=== PATIENT | male | born 1970 | race American Indian/Alaskan Native ===

== ENCOUNTER 2017-11-10 13:20 | Observation (INO) | payer BC, OTHER ==
[2017-11-10 13:47] LABS: BASO # 0.1 K/uL (0.0-0.2); EOS % 0.7 % (0.0-4.0); HEMOGLOBIN 15.9 g/dL (12.0-18.0); LYMPH # 1.4 K/uL (1.0-4.3); LYMPH % 20.4 % (20.0-40.0); MEAN CELL VOLUME 84.6 fL (80.0-94.0); MEAN CORPUSCULAR HEMOGLOBIN 28.8 pg (27.0-31.0); MEAN PLATELET VOLUME 9.9 fL (7.2-11.7); MONO # 0.6 K/uL (0.0-0.8); MONO % 8.1 % (0.0-10.0); NEUT # 4.8 K/uL (1.8-7.0); NEUT % 69.8 % (50.0-75.0); RBC 5.52 Mil/uL (4.40-5.90); RED CELL DISTRIBUTION WIDTH 16.2 % (11.5-14.5)
--- NOTE | 2017-11-10 13:51 | C.PDOC ---
History Of Present Illness 47 year old male with a past medical history of cerebral aneurysm without rupture who presents to the emergency department with an acute onset of dizziness when he woke up from his sleep around 2 am. States dizziness worsens when he moves his head and decreases when he is still. Patient is on an annual surveillance MRI with Dr. Sorenson (neurologist). Last MRI results were negative with no acute changes. Time Seen by Provider: 11/10/17 13:48 Chief Complaint (Nursing): Weakness/Neurological Deficit History Per: Patient History/Exam Limitations: no limitations Onset/Duration Of Symptoms: Hrs (since 2am) Current Symptoms Are (Timing): Still Present Past Medical History Reviewed: Historical Data, Nursing Documentation, Vital Signs Vital Signs: Last Vital Signs Temp 98.5 F 11/10/17 18:32 Pulse 65 11/10/17 18:32 Resp 16 11/10/17 18:32 BP 129/81 11/10/17 18:32 Pulse Ox 99 11/10/17 18:32 - Medical History PMH: Benign Prostatic Hyperplasia, HTN, TIA Other PMH: cerebral aneurysm without rupture - [facility] Procedures INCIS W REM OF FORIEGN BODY OR DEV FROM SKIN & SUBCUT TISSUE (11/28/14) OTH & OPEN REP OTH HERNIA OF ANTER ABD WALL W GRF OR PROSTH (12/23/13) Family History: States: Unknown Family Hx - Social History Hx Tobacco Use: Yes Hx Alcohol Use: No Hx Substance Use: No - Immunization History Hx Tetanus Toxoid Vaccination: No Hx Influenza Vaccination: No Hx Pneumococcal Vaccination: No Review Of Systems Except As Marked, All Systems Reviewed And Found Negative. (As per HPI, otherwise negative) Neurological: Positive for: Dizziness Physical Exam - Physical Exam Appears: Well, Non-toxic Skin: Normal Color, Warm, Dry Head: Atraumatic, Normacephalic Gingiva: Normal Appearing Throat: Normal, No Erythema, No Exudate Chest: No Deformity, No Tenderness Cardiovascular: Rhythm Regular, No Murmur Respiratory: Normal Breath Sounds, No Decreased Breath Sounds, No Accessory Muscle Use, No Wheezing Gastrointestinal/Abdominal: Normal Exam, Soft, No Tenderness Extremity: Normal ROM, No Pedal Edema Neurological/Psych: Oriented x3 Gait: Steady ED Course And Treatment - Laboratory Results Result Diagrams: 11/10/17 13:44 11/10/17 13:44 Lab Interpretation: Normal ECG: Interpreted By Me ECG Rhythm: Sinus Rhythm ECG Interpretation: Normal Rate From EC O2 Sat by Pulse Oximetry: 100 (RA) Pulse Ox Interpretation: Normal - Radiology CXR: Interpreted by Me, Viewed By Me, Read By Radiologist CXR Interpretation: Yes: No Acute Disease, Other (IMPRESSION: No active pulmonary disease.) - CT Scan/US CT - Head Other Rad Studies (CT/US): Read By Radiologist, Radiology Report Reviewed CT/US Interpretation: IMPRESSION: No evidence of acute intracranial hemorrhage intracranial collection territorial infarct or mass effect. Progress Note: Meclizine 50 mg PO. 1800: claims not sig improved. feed dinner , toradol 30 IV, Valium 5 PO Reevaluation Time: 17:52 Reassessment Condition: Improved - Physician Consult Information Outcome Of Conversation: 1800: d/w Dr. Aldo chavez to admit tele obs. Medical Decision Making Medical Decision Making: s/s of BPV but unimproved w Meclizine normal labs/head CT Trial valium/toradol inpt eval and plan for MRI in AM Time: 1434 --Chest x-ray IMPRESSION: No active pulmonary disease. Time: 1537 --Head CT IMPRESSION: No evidence of acute intracranial hemorrhage intracranial collection territorial infarct or mass effect. Disposition Doctor Will See Patient In The: Hospital Counseled Patient/Family Regarding: Studies Performed, Diagnosis - Disposition Disposition: HOSPITALIZED Disposition Time: 17:56 Condition: GOOD - Clinical Impression Clinical Impression: Vertigo - Scribe Statement Provider Attestation: Suzy Schultz All medical record entries made by the Scribe were at my direction and personally dictated by me. I have reviewed the chart and agree that the record accurately reflects my personal performance of the history, physical exam, medical decision making, and the department course for this patient. I have also personally directed, reviewed, and agree with the discharge instructions and disposition.
[2017-11-10 14:20] LABS: ALB/GLOB RATIO 1.2 (1.0-2.1); ALBUMIN 4.5 g/dL (3.5-5.0); ALT/SGPT 43 U/L (21-72); AST/SGOT 38 U/L (17-59); BLOOD UREA NITROGEN 18 mg/dL (9-20); GFR AFRICAN-AMERICAN > 60; GFR NON-AFRICAN AMERICAN > 60
--- NOTE | 2017-11-10 14:36 | RAD ---
PROCEDURE: CHEST RADIOGRAPH, 1 VIEW HISTORY: Shortness of breath COMPARISON: 12/23/2015. FINDINGS: LUNGS: The lungs are well inflated and clear. PLEURA: No pneumothorax or pleural fluid seen. CARDIOVASCULAR: Normal. OSSEOUS STRUCTURES: No significant abnormalities. VISUALIZED UPPER ABDOMEN: Normal. OTHER FINDINGS: None. IMPRESSION: No active pulmonary disease.
[2017-11-10 15:04] LABS: URINE BILIRUBIN NEGATIVE (NEGATIVE); URINE BLOOD NEGATIVE (NEGATIVE); URINE CLARITY Clear (Clear); URINE COLOR Straw (YELLOW); URINE GLUCOSE (UA) NORMAL (Normal); URINE LEUKOCYTE ESTERASE NEG Leu/uL (Negative); URINE NITRATE NEGATIVE (NEGATIVE); URINE PROTEIN NEGATIVE (NEGATIVE); URINE UROBILINOGEN NORMAL mg/dL (0.2-1.0)
--- NOTE | 2017-11-10 15:43 | CT ---
PROCEDURE: CT HEAD WITHOUT CONTRAST. HISTORY: vertigo, h/o CVA? COMPARISON: Comparison is made with 10/18/2016 TECHNIQUE: Axial computed tomography images were obtained through the head/brain without intravenous contrast. Radiation dose: Total exam DLP = 875.6 mGy-cm. This CT exam was performed using one or more of the following dose reduction techniques: Automated exposure control, adjustment of the mA and/or kV according to patient size, and/or use of iterative reconstruction technique. FINDINGS: HEMORRHAGE: No intracranial hemorrhage. BRAIN: No mass effect or edema. No atrophy or chronic microvascular ischemic changes. VENTRICLES: Unremarkable. No hydrocephalus. CALVARIUM: Unremarkable. PARANASAL SINUSES: Unremarkable as visualized. No significant inflammatory changes. MASTOID AIR CELLS: Unremarkable as visualized. No inflammatory changes. OTHER FINDINGS: None. IMPRESSION: No evidence of acute intracranial hemorrhage intracranial collection territorial infarct or mass effect.
[2017-11-10 17:08] LABS: BARBITURATES, UR NEGATIVE (NEGATIVE); BENZODIAZEPINES, UR NEGATIVE (NEGATIVE); OPIATES, UR NEGATIVE (NEGATIVE); PHENCYCLIDINE, UR NEGATIVE (NEGATIVE)
[2017-11-10] MEDS ORDERED: Aspirin 325 mg EC Tablets PO STA (17:59)
[2017-11-10] MEDS ORDERED: Aspirin 325 mg EC Tablets PO ONE (18:20)
[2017-11-10] MEDS ORDERED: oxyCODONE 10 mg Immediate Release Tab PO PRN (20:48)
--- NOTE | 2017-11-10 21:48 | CP.PCM.HP ---
History of Present Illness - History of Present Illness History of Present Illness: 47 year old male with a past medical history of cerebral aneurysm without rupture who presents to the emergency department with an acute onset of dizziness when he woke up from his sleep around 2 am. States dizziness worsens when he moves his head and decreases when he is still.. Last MRI results were negative with no acute changes. Present on Admission - Present on Admission Any Indicators Present on Admission: No Review of Systems - Constitutional Constitutional: absent: As Per HPI, Anorexia, Chills, Daytime Sleepiness, Excessive Sweating, Fatigue, Fever, Frequent Falls, Headache, Increased Appetite , Lethargy, Malaise, Night Sweats, Snoring, Sleep Apnea, Weight Gain, Weight Loss, Weakness, Other - EENT Eyes: absent: As Per HPI, Blind Spots, Blurred Vision, Change in Vision, Decreased Night Vision, Diplopia, Discharge, Dry Eye, Exophthalmos, Floaters, Irritation, Itchy Eyes, Loss of Peripheral Vision, Pain, Photophobia, Requires Corrective Lenses, Sees Flashes, Spots in Vision, Tunnel Vision, Other Visual Disturbances, Loss of Vision, Other - Cardiovascular Cardiovascular: absent: As Per HPI, Acrocyanosis, Chest Pain, Chest Pain at Rest , Chest Pain with Activity, Claudication, Diaphoresis, Dyspnea, Dyspnea on Exertion, Edema, Irregular Heart Rhythm, Pain Radiating to Arm/Neck/Jaw, Leg Edema, Leg Ulcers, Lightheadedness, Orthopnea, Palpitations, Paroxysmal Nocturnal Dyspnea, Pedal Edema, Radiating Pain, Rapid Heart Rate, Slow Heart Rate, Syncope, Other - Respiratory Respiratory: absent: As Per HPI, Cough, Dyspnea, Hemoptysis, Dyspnea on Exertion , Wheezing, Snoring, Stridor, Pain on Inspiration, Chest Congestion, Excessive Mucous Production, Change in Mucous Color, Pain with Coughing, Other - Gastrointestinal Gastrointestinal: absent: As Per HPI, Abdominal Pain, Belching, Bloating, Change in Bowel Habits, Change in Stool Character, Coffee Ground Emesis, Constipation, Cramping, Diarrhea, Dyspepsia, Dysphagia, Early Satiety, Excessive Flatus, Fecal Incontinence, Heartburn, Hematemesis, Hematochezia, Loose Stools, Melena, Nausea, Odynophagia, Temesmus, Vomiting, Other - Neurological Neurological: Disequilibrium, Dizziness, Numbness, Vertigo, Weakness. absent: Abnormal Movements, Confusion, Convulsions, Focal Weakness, Frequent Falls, Sensory Deficit - Psychiatric Psychiatric: absent: As Per HPI, Abnormal Sleep Pattern, Anhedonia, Anxiety, Auditory Hallucinations, Behavioral Changes, Change in Appetite, Change in Libido, Confusion, Depression, Difficulty Concentrating, Hallucinations, Homicidal Ideation, Hopelessness, Irritability, Memory Loss, Mood Swings, Panic Attacks, Paranoia, Suicidal Ideation, Visual Hallucinations, Tactile Hallucinations, Other - Endocrine Endocrine: absent: As Per HPI, Change in Body Appearance, Change in Libido, Cold Intolorance, Deepening of Voice, Excessive Sweating, Fatigue, Flushing, Heat Intolorance, Increase in Ring/Shoe/Hat Size, Palpitations, Polydipsia, Polyphagia, Polyuria, Other Past Patient History - Past Medical History & Family History Past Medical History?: Yes - Past Social History Smoking Status: Light Smoker < 10 Cigarettes Daily - CARDIAC Hx Hypertension: Yes - NEUROLOGICAL Hx Transient Ischemic Attacks (TIA): Yes - MUSCULOSKELETAL/RHEUMATOLOGICAL Hx Falls: No - PSYCHIATRIC Hx Substance Use: No - SURGICAL HISTORY Other/Comment: HERNIA REPAIR, LEFT HAND/FINGER AMPUTATION - ANESTHESIA Hx Anesthesia: Yes Hx Anesthesia Reactions: Yes Hx Malignant Hyperthermia: No Meds Allergies/Adverse Reactions: Allergies Allergy/AdvReac Type Severity Reaction Status Date / Time No Known Allergies Allergy Verified 11/10/17 13:35 Physical Exam - Head Exam Head Exam: ATRAUMATIC, NORMAL INSPECTION, NORMOCEPHALIC - Eye Exam Eye Exam: EOMI, Normal appearance, PERRL Pupil Exam: NORMAL ACCOMODATION, PERRL - ENT Exam ENT Exam: Mucous Membranes Moist, Normal Exam - Neck Exam Neck exam: Positive for: Normal Inspection - Respiratory Exam Respiratory Exam: Clear to Auscultation Bilateral, NORMAL BREATHING PATTERN - Cardiovascular Exam Cardiovascular Exam: REGULAR RHYTHM, +S1 - Rectal Exam Rectal Exam: Deferred - Extremities Exam Extremities exam: Positive for: normal inspection - Back Exam Back exam: NORMAL INSPECTION - Neurological Exam Neurological exam: Alert, CN II-XII Intact, Normal Gait, Oriented x3, Reflexes Normal - Psychiatric Exam Psychiatric exam: Normal Affect, Normal Mood - Skin Skin Exam: Dry, Intact, Normal Color, Warm Results - Vital Signs Recent Vital Signs: Last Vital Signs Temp 98.5 F 11/10/17 18:32 Pulse 67 11/10/17 20:30 Resp 16 11/10/17 18:32 BP 129/81 11/10/17 18:32 Pulse Ox 100 11/10/17 19:49 - Labs Result Diagrams: 11/10/17 13:44 11/10/17 13:44 Labs: Laboratory Results - last 24 hr 11/10/17 11/10/17 11/10/17 13:27 13:44 13:44 WBC 7.0 RBC 5.52 Hgb 15.9 D Hct 46.7 MCV 84.6 D MCH 28.8 MCHC 34.0 RDW 16.2 H Plt Count 227 MPV 9.9 Neut % (Auto) 69.8 Lymph % (Auto) 20.4 Quay % (Auto) 8.1 Eos % (Auto) 0.7 Baso % (Auto) 1.0 Neut # 4.8 Lymph # 1.4 Quay # 0.6 Eos # 0.0 Baso # 0.1 Sodium 130 L Potassium 4.0 Chloride 94 L Carbon Dioxide 28 Anion Gap 11 BUN 18 Creatinine 1.2 Est GFR ( Amer) > 60 Est GFR (Non-Af Amer) > 60 POC Glucose (mg/dL) 101 Random Glucose 111 H Calcium 9.0 Total Bilirubin 0.6 AST 38 ALT 43 Alkaline Phosphatase 59 Total Creatine Kinase Troponin I < 0.0120 NT-Pro-B Natriuret Pep 12.0 Total Protein 8.2 Albumin 4.5 Globulin 3.7 Albumin/Globulin Ratio 1.2 Urine Color Urine Clarity Urine pH Ur Specific Mclean Urine Protein Urine Glucose (UA) Urine Ketones Urine Blood Urine Nitrate Urine Bilirubin Urine Urobilinogen Ur Leukocyte Esterase Urine Opiates Screen Urine Methadone Screen Ur Barbiturates Screen Ur Phencyclidine Scrn Ur Amphetamines Screen U Benzodiazepines Scrn U Oth Cocaine Metabols U Cannabinoids Screen 11/10/17 11/10/17 11/10/17 14:57 16:42 21:31 WBC RBC Hgb Hct MCV MCH MCHC RDW Plt Count MPV Neut % (Auto) Lymph % (Auto) Quay % (Auto) Eos % (Auto) Baso % (Auto) Neut # Lymph # Quay # Eos # Baso # Sodium Potassium Chloride Carbon Dioxide Anion Gap BUN Creatinine Est GFR ( Amer) Est GFR (Non-Af Amer) POC Glucose (mg/dL) Random Glucose Calcium Total Bilirubin AST ALT Alkaline Phosphatase Total Creatine Kinase 511 H Troponin I NT-Pro-B Natriuret Pep Total Protein Albumin Globulin Albumin/Globulin Ratio Urine Color Straw Urine Clarity Clear Urine pH 8.0 Ur Specific Mclean 1.008 Urine Protein Negative Urine Glucose (UA) Normal Urine Ketones Negative Urine Blood Negative Urine Nitrate Negative Urine Bilirubin Negative Urine Urobilinogen Normal Ur Leukocyte Esterase Neg Urine Opiates Screen Negative Urine Methadone Screen Negative Ur Barbiturates Screen Negative Ur Phencyclidine Scrn Negative Ur Amphetamines Screen Negative U Benzodiazepines Scrn Negative U Oth Cocaine Metabols Negative U Cannabinoids Screen Negative Assessment & Plan (1) Vertigo Status: Acute Comment: MRI HEAD. NEURO EVAL (2) Benign prostate hyperplasia Status: Acute
[2017-11-10 21:58] LABS: CK-MB 1.74 ng/mL (0.0-3.38)
[2017-11-11 08:08] LABS: CK-MB 1.86 ng/mL (0.0-3.38)
[2017-11-11] MEDS ORDERED: oxyCODONE 10 mg Immediate Release Tab PO PRN (08:35)
[2017-11-11 13:56] LABS: CK-MB 1.92 ng/mL (0.0-3.38)
--- NOTE | 2017-11-11 14:14 | CP.PCM.PN ---
Subjective - Date & Time of Evaluation Date of Evaluation: 11/11/17 Time of Evaluation: 14:13 - Subjective Subjective: CHIEF COMPLAINTS TODAY : POSITIONAL VERTIGO ROS. HEENT : N. Resp : No cough, wheezing ,pleuritic CP ,or hemoptysis Cardio : No anginal CP, PND, orthopnea, palpitation GI : No abd.pain, n/v ,diarrhea or GI bleeding . 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 Musculoskel : No joint swelling , Derm : No rash Psych : Normal affect. Ext : No swelling ,calf pain PE. Pt. is alert awake in no distress. V.S As noted in the chart Head ,ear nose,throat and eyes : Normal. Neck : Supple with normal carotids. Lungs: Clear air entry. Heart : S1 & S2 normal with S4. No murmur. Abd : Soft non tender with normal bowel sounds. Neuro : Moves all ext. with no localized deficit. Ext : No edema with intact pulses.Non tender calves Derm : No rashes or decubitus ulcer. LABS/RADIOLOGY: AWAITING MRI ASSESSMENT/PLAN : NEURO EVAL Objective - Vital Signs/Intake and Output Vital Signs (last 24 hours): Temp Pulse Resp BP Pulse Ox 97.8 F 65 20 133/79 97 11/11/17 08:47 11/11/17 08:47 11/11/17 08:47 11/11/17 08:47 11/11/17 08:47 Intake and Output: 11/11/17 11/11/17 11:59 23:59 Intake Total 120 Balance 120 - Medications Medications: Current Medications Aspirin (Aspirin) 325 mg PO DAILY [facility] Last Admin: 11/11/17 09:27 Dose: 325 mg Losartan Potassium (Cozaar) 100 mg PO DAILY [facility] Last Admin: 11/11/17 09:27 Dose: 100 mg Meclizine HCl (Antivert) 25 mg PO Q8 [facility] Last Admin: 11/11/17 13:52 Dose: 25 mg Oxycodone HCl (Oxycodone Immediate Release Tab) 10 mg PO BID PRN PRN Reason: Pain, severe (8-10) Last Admin: 11/11/17 10:02 Dose: 10 mg - Labs Labs: 11/10/17 13:44 11/10/17 13:44 Assessment and Plan (1) Vertigo Status: Acute (2) Benign prostate hyperplasia Status: Acute
--- NOTE | 2017-11-11 18:31 | MRI ---
PROCEDURE: MRI BRAIN WITHOUT CONTRAST HISTORY: dizziness, h/o aneurysm COMPARISON: Comparison is made to the previous study dated 09/15/[address] head without contrast dated 11/10/2017 TECHNIQUE: Multiplanar, multisequence MR images of the brain were obtained without intravenous contrast enhancement. FINDINGS: HEMORRHAGE: None DWI: No evidence of an acute or early subacute infarction. BRAIN PARENCHYMA: No mass effect or edema. No atrophy or chronic microvascular ischemic changes. VENTRICLES: Unremarkable. No hydrocephalus. CRANIUM: Unremarkable. ORBITS: Grossly unremarkable. PARANASAL SINUSES/MASTOIDS: There is 2.1 x 1.7 centimeter mucosal retention cyst at the left maxillary sinus. There is mild mucosal thickening in the right maxillary sinus. VASCULAR SYSTEM: Skull base flow voids intact. OTHER FINDINGS: None. IMPRESSION: No evidence of acute infarction or acute pathology in the brain. No evidence of mass lesion mass effect or midline shift.
--- NOTE | 2017-11-12 14:48 | CP.PCM.PN ---
Subjective - Date & Time of Evaluation Date of Evaluation: 11/12/17 Time of Evaluation: 14:48 - Subjective Subjective: THE Objective - Vital Signs/Intake and Output Vital Signs (last 24 hours): Temp Pulse Resp BP Pulse Ox 97.5 F L 81 18 119/75 96 11/11/17 23:47 11/12/17 08:00 11/11/17 23:47 11/11/17 23:47 11/11/17 23:47 - Medications Medications: Current Medications Aspirin (Aspirin) 325 mg PO DAILY [facility] Last Admin: 11/12/17 10:17 Dose: 325 mg Losartan Potassium (Cozaar) 100 mg PO DAILY [facility] Last Admin: 11/12/17 10:17 Dose: 100 mg Meclizine HCl (Antivert) 50 mg PO Q8H [facility] Last Admin: 11/12/17 13:54 Dose: 50 mg Oxycodone HCl (Oxycodone Immediate Release Tab) 10 mg PO BID PRN PRN Reason: Pain, severe (8-10) Last Admin: 11/11/17 10:02 Dose: 10 mg - Labs Labs: 11/10/17 13:44 11/10/17 13:44 Assessment and Plan (1) Vertigo Status: Acute (2) Benign prostate hyperplasia Status: Acute
--- NOTE | 2017-11-12 18:23 | CP.PCM.CON ---
History of Present Illness - History of Present Illness History of Present Illness: Mr. Aj is a 47-year-old man with a past medical history of hypertension and a cerebral aneurysm that woke up from bed on 11/10/17 with the sudden onset of a spinning sensation, sweating, nausea (no vomiting), and slurred speech. MRI of the brain did not show any acute infarct. He was started on Antivert and has improved somewhat with regard to the vertigo. Review of Systems - Review of Systems All systems: reviewed and no additional remarkable complaints except Past Patient History - Past Medical History & Family History Past Medical History?: Yes - Past Social History Smoking Status: Light Smoker < 10 Cigarettes Daily - CARDIAC Hx Hypertension: Yes - NEUROLOGICAL Hx Transient Ischemic Attacks (TIA): Yes - MUSCULOSKELETAL/RHEUMATOLOGICAL Hx Falls: No - PSYCHIATRIC Hx Substance Use: No - SURGICAL HISTORY Other/Comment: HERNIA REPAIR, LEFT HAND/FINGER AMPUTATION - ANESTHESIA Hx Anesthesia: Yes Hx Anesthesia Reactions: Yes Hx Malignant Hyperthermia: No Meds Allergies/Adverse Reactions: Allergies Allergy/AdvReac Type Severity Reaction Status Date / Time No Known Allergies Allergy Verified 11/10/17 13:35 - Medications Medications: Current Medications Aspirin (Aspirin) 325 mg PO DAILY [facility] Last Admin: 11/12/17 10:17 Dose: 325 mg Losartan Potassium (Cozaar) 100 mg PO DAILY [facility] Last Admin: 11/12/17 10:17 Dose: 100 mg Meclizine HCl (Antivert) 50 mg PO Q8H [facility] Last Admin: 11/12/17 13:54 Dose: 50 mg Oxycodone HCl (Oxycodone Immediate Release Tab) 10 mg PO BID PRN PRN Reason: Pain, severe (8-10) Last Admin: 11/11/17 10:02 Dose: 10 mg Physical Exam - Constitutional Appears: Well - Head Exam Head Exam: ATRAUMATIC, NORMAL INSPECTION, NORMOCEPHALIC - Eye Exam Eye Exam: EOMI, Normal appearance, PERRL - ENT Exam ENT Exam: Mucous Membranes Moist, Normal Exam - Neck Exam Neck exam: Positive for: Normal Inspection - Respiratory Exam Respiratory Exam: Clear to Auscultation Bilateral, NORMAL BREATHING PATTERN - Cardiovascular Exam Cardiovascular Exam: REGULAR RHYTHM, +S1, +S2 - GI/Abdominal Exam GI & Abdominal Exam: Normal Bowel Sounds, Soft. absent: Tenderness - Rectal Exam Rectal Exam: Deferred - Extremities Exam Extremities exam: Positive for: normal inspection - Back Exam Back exam: NORMAL INSPECTION - Neurological Exam Neurological exam: Alert, CN II-XII Intact, Normal Gait, Oriented x3, Reflexes Normal - Expanded Neurological Exam Expanded Cranial nerves: Nystagmus: Abnormal Right Ataxia: No Cerebellar Function: Finger to Nose: Abnormal Right Neuro motor strength exam: Left Upper Extremity: 5, Right Upper Extremity: 5, Left Lower Extremity: 5, Right Lower Extremity: 5 DTR: Achilles Tendon Left: 2+, Achilles Tendon Right: 2+, Bicep Left: 2+, Bicep Right: 2+, Brachioradialis Left: 2+, Brachioradialis Right: 2+, Patellar Left: 2 +, Patellar Right: 2+, Tricep Left: 2+, Tricep Right: 2+ Results - Vital Signs Recent Vital Signs: Last Vital Signs Temp 98.4 F 11/12/17 16:37 Pulse 77 11/12/17 16:37 Resp 20 11/12/17 16:37 BP 121/73 11/12/17 16:37 Pulse Ox 95 11/12/17 16:37 - Labs Result Diagrams: 11/10/17 13:44 11/10/17 13:44 Assessment & Plan (1) Vertigo Assessment and Plan: With his history of vascular disease (aneurysm), and hypertension, a CTA is warranted to evaluate for vertebro-basilar insufficiency. I recommend continuing aspirin 81 mg daily, and starting Valium 2 mg BID for vertigo (will discontinue meclizine). PT/OT eval and treat if needed. Thank you. Status: Acute Priority: High
[2017-11-12] MEDS ORDERED: Iodixanol 320 MG/ML 100 ML BOTTLE IV ONE (18:34)
--- NOTE | 2017-11-12 21:23 | CT ---
EXAM: CT Angiography Head With Intravenous Contrast CLINICAL HISTORY: 47 years old, male; Signs and symptoms; Vertigo; Patient HX: Patient has HX of TIA TECHNIQUE: Axial computed tomographic angiography images of the head with intravenous contrast using CT angiography protocol. All CT scans at this facility use one or more dose reduction techniques, viz.: automated exposure control; ma/kV adjustment per patient size (including targeted exams where dose is matched to indication; i.e. head); or iterative reconstruction technique. MIP reconstructed images were created and reviewed. Coronal and sagittal reformatted images were created and reviewed. CONTRAST: 100 mL of [id number] administered intravenously. COMPARISON: No relevant prior studies available. FINDINGS: There is no contrast opacification of the arteries Sinuses: A mucus retention cyst is seen in the left maxillary sinus. Mucosal thickening is seen in the right maxillary sinus. IMPRESSION: 1. A CTA of the brain is nondiagnostic due to technical error related to timing of contrast bolus injection image acquisition. This was discussed with the medical imaging technologist who performed the examination 2. Mucous retention cyst in the left maxillary sinus perimucosal thickening in the right maxillary sinus and EXAM: CT Angiography Neck With Intravenous Contrast EXAM DATE/TIME: Exam ordered 11/12/2017 6:06 PM CLINICAL HISTORY: 47 years old, male; Signs and symptoms; Vertigo; Patient HX: Patient has HX of TIA TECHNIQUE: Axial computed tomographic angiography images of the neck with intravenous contrast using CT angiography protocol. All CT scans at this facility use one or more dose reduction techniques, viz.: automated exposure control; ma/kV adjustment per patient size (including targeted exams where dose is matched to indication; i.e. head); or iterative reconstruction technique. MIP reconstructed images were created and reviewed. Coronal and sagittal reformatted images were created and reviewed. CONTRAST: 100 mL of [id number] administered intravenously. COMPARISON: CT - ANGIOGRAPHY HEAD 2015-12-29 09:14 FINDINGS: VASCULATURE: There is no contrast opacification of the arteries. NECK: There is no contrast opacification of the arteries of the neck Bones/joints: No acute fracture. No dislocation. Soft tissues: Unremarkable as visualized. No mass. CAROTID STENOSIS REFERENCE USING NASCET CRITERIA: % ICA stenosis = (1 - narrowest ICA diameter/diameter of distal cervical ICA) x 100. Mild - <50% stenosis. Moderate - 50-69% stenosis. Severe - 70-94% stenosis. Near occlusion - 95-99% stenosis. Occluded - 100% stenosis. IMPRESSION: 1. The CTA of the neck is nondiagnostic due to technical error related to timing of the contrast bolus injection and image acquisition. The examination was discussed with the medical imaging technologist perform the examination.
[2017-11-13 07:57] VITALS: RESP 20
--- NOTE | 2017-11-13 13:35 | CP.PCM.PN ---
Subjective - Date & Time of Evaluation Date of Evaluation: 11/13/17 Time of Evaluation: 13:33 - Subjective Subjective: CHIEF COMPLAINTS TODAY : POSITIONAL VERTIGO NEURO EVAL NOTED ROS. HEENT : N. Resp : No cough, wheezing ,pleuritic CP ,or hemoptysis Cardio : No anginal CP, PND, orthopnea, palpitation GI : No abd.pain, n/v ,diarrhea or GI bleeding . [employer]ACHINE : No headache, , focal deficit. Musculoskel : No joint swelling , Derm : No rash Psych : Normal affect. Ext : No swelling ,calf pain PE. Pt. is alert awake in no distress. V.S As noted in the chart Head ,ear nose,throat and eyes : Normal. Neck : Supple with normal carotids. Lungs: Clear air entry. Heart : S1 & S2 normal with S4. No murmur. Abd : Soft non tender with normal bowel sounds. Neuro : Moves all ext. with no localized deficit. Ext : No edema with intact pulses.Non tender calves Derm : No rashes or decubitus ulcer. LABS/RADIOLOGY: CTA OF HEAD/NECK ERROR IN TECHNIC ASSESSMENT/PLAN : REPEAT CTA Objective - Vital Signs/Intake and Output Vital Signs (last 24 hours): Temp Pulse Resp BP Pulse Ox 97.4 F L 95 H 20 110/70 97 11/13/17 07:56 11/13/17 07:56 11/13/17 07:56 11/13/17 07:56 11/13/17 07:56 - Medications Medications: Current Medications Aspirin (Aspirin) 325 mg PO DAILY [facility] Last Admin: 11/13/17 10:43 Dose: 325 mg Diazepam (Valium) 2 mg PO Q12 PRN PRN Reason: vertigo Last Admin: 11/13/17 10:43 Dose: 2 mg Losartan Potassium (Cozaar) 100 mg PO DAILY [facility] Last Admin: 11/13/17 10:43 Dose: 100 mg Oxycodone HCl (Oxycodone Immediate Release Tab) 10 mg PO BID PRN PRN Reason: Pain, severe (8-10) Last Admin: 11/11/17 10:02 Dose: 10 mg - Labs Labs: 11/10/17 13:44 11/10/17 13:44 Assessment and Plan (1) Vertigo Status: Acute (2) Benign prostate hyperplasia Status: Acute
--- NOTE | 2017-11-13 15:37 | CP.PCM.PN ---
Subjective - Date & Time of Evaluation Date of Evaluation: 11/13/17 Time of Evaluation: 15:32 - Subjective Subjective: Mr. Anthony was seen and examined at the bedside. He is alert, oriented in all spheres. He is upset with the delay of his diagnostic test and request to go home after the repeat CTA tonight. He states of his dizziness improved since he has been taking valium. He denies any headache, lightheadedness, blurred vision , nausea, or vomiting. He is able to follow simple commands. There was no untoward events overnight. Objective - Vital Signs/Intake and Output Vital Signs (last 24 hours): Temp Pulse Resp BP Pulse Ox 97.4 F L 95 H 20 110/70 97 11/13/17 07:56 11/13/17 07:56 11/13/17 07:56 11/13/17 07:56 11/13/17 07:56 - Medications Medications: Current Medications Aspirin (Aspirin) 325 mg PO DAILY [facility] Last Admin: 11/13/17 10:43 Dose: 325 mg Diazepam (Valium) 2 mg PO Q12 PRN PRN Reason: vertigo Last Admin: 11/13/17 10:43 Dose: 2 mg Losartan Potassium (Cozaar) 100 mg PO DAILY [facility] Last Admin: 11/13/17 10:43 Dose: 100 mg Oxycodone HCl (Oxycodone Immediate Release Tab) 10 mg PO BID PRN PRN Reason: Pain, severe (8-10) Last Admin: 11/11/17 10:02 Dose: 10 mg - Labs Labs: 11/10/17 13:44 11/10/17 13:44 - Constitutional Appears: No Acute Distress - Head Exam Head Exam: NORMAL INSPECTION - Neurological Exam Neurological Exam: Alert, Awake, CN II-XII Intact, Oriented x3 Neuro motor strength exam: Left Upper Extremity: 5, Right Upper Extremity: 5, Left Lower Extremity: 5, Right Lower Extremity: 5 Additional comments: Neurological improved from previous examination. Assessment and Plan (1) Vertigo Assessment & Plan: Case discussed with Dr. Roman, continue all current medical regimen. Pending CTA tonight. Status: Acute
--- NOTE | 2017-11-13 15:55 | CON ---
DATE: 11/13/2017 REASON FOR CONSULTATION: Dizziness. REQUESTING PHYSICIAN: Tanisha Delarosa MD HISTORY OF PRESENT ILLNESS: This is a 47-year-old male, who started having dizziness 3 days ago. It was on and off, moderate in intensity, laying and turning his head to the right. The dizziness has resolved since. There is no hearing loss. No ringing in the ears. PAST MEDICAL HISTORY: As noted in the chart by me. MEDICATIONS: As noted in the chart by me. ALLERGIES: NO KNOWN DRUG ALLERGIES. PHYSICAL EXAMINATION HEAD: Atraumatic and normocephalic. FACE: Good facial movements bilaterally. CONSTITUTIONAL: Well fed, well nourished. COMMUNICATION: Communicates well and appropriately. EXTERNAL NOSE AND EARS: No masses. No lesions. No erythema. No edema. INTERNAL NOSE: Deviated septum. No masses. No lesions. No erythema. No edema. ORAL CAVITY AND OROPHARYNX: No masses. No lesions. No erythema. No edema. LIPS AND GUMS: No masses. No lesions. No erythema. No edema. NECK: Supple. THYROID: No thyromegaly. No goiter. LYMPH NODES: No lymphadenopathy in the neck. INTERNAL EARS: Ear wax found in both ear canals. TM could not be visualized. ASSESSMENT: 1. Ear wax. 2. Deviated septum. 3. Dizziness, resolved. PLAN: Dizziness has resolved at this point. An MRI of the head should be done as outpatient. Patient to follow up as an outpatient to have ear wax removed. Travis Levine MD
[2017-11-13 15:59] VITALS: BP 131/66; PULSE 71; TEMP 97.9; O2SAT 99
[2017-11-13] MEDS ORDERED: Iodixanol 320 MG/ML 100 ML BOTTLE IV ONE (19:59)
--- NOTE | 2017-11-14 13:20 | CT ---
PROCEDURE: CTA HEAD AND NECK WITH CONTRAST HISTORY: Vertigo COMPARISON: None available. TECHNIQUE: Initial noncontrast head CT was performed. Subsequently, CT angiogram of the head and neck were performed after the intravenous administration of 80 mL of Omnipaque 350. Contiguous 1.5mm thick images were obtained in the axial plane of the neck. 2-D coronal and sagittal MPR images were obtained. Imaging postprocessing was performed with 3-D images also obtained. A delayed contrast head CT was also obtained. This CT exam was performed using one or more of the following dose reduction techniques: Automated exposure control, adjustment of the mA and/or kV according to patient size, and/or use of iterative reconstruction technique. Contrast dose: 100 mL Visipaque 320 Radiation dose: Total exam DLP = 641.25 mGy-cm. FINDINGS: HEAD: Right: The intracranial internal carotid artery, and anterior and middle cerebral arteries are widely patent. Left: The intracranial internal carotid artery, and anterior and middle cerebral arteries are widely patent. Posterior circulation: The visualized intracranial vertebral arteries, basilar artery and posterior cerebral arteries are widely patent. There is a 3 mm saccular aneurysm in the left proximal A2 segment at its origin. There is a 5 mm saccular aneurysm at the left MCA bifurcation. There is no endoluminal filling defect to suggest thrombus. There is no abnormal enhancement on the postcontrast CT. NECK: There is a three vessel aortic arch. There is no stenosis at the origins of the great vessels at the level of the aortic arch. Right Carotid: On the right, the common carotid, internal carotid and external carotid arteries are widely patent. There is no hemodynamically significant stenosis in the internal carotid arteries. Left Carotid: On the left, the common carotid, internal carotid and external carotid arteries are widely patent.There is no hemodynamically significant stenosis in the internal carotid arteries. The vertebral arteries are widely patent. The vertebral artery is hypoplastic, an anatomic variant. The visualized soft tissues of the neck are normal. The visualized brain and cervical spine are within normal limits. The lung apices are clear. IMPRESSION: 1. 3 mm saccular aneurysm in the left proximal A2 segment at its origin and 5 mm saccular aneurysm at the left MCA bifurcation. 2. No evidence of occlusion or definite significant stenosis in the intracranial anterior and posterior circulation arteries. 3. Normal CT angiogram of the neck.
== END 2017-11-13 22:57 | disposition home or self-care (01) ==
LOC: C.ER 13:20 → C.9E 17:57 → C.6T 19:18 → C.5S 11-11 05:51
PROVIDERS: ADMIT Internal Medicine Cardiovascular Disease; ATTEND Internal Medicine Cardiovascular Disease
DX: R53.1 Weakness (principal); J34.2 Deviated nasal septum; I10 Essential (primary) hypertension; N40.0 Benign prostatic hyperplasia without lower urinary tract symptoms; Z86.73 Personal history of transient ischemic attack (TIA), and cerebral infarction without residual deficits; Z87.891 Personal history of nicotine dependence
CPT/HCPCS: 36415; 70450; 70496; 70498; 70551; 71045; 80053; 81001; 82948; 83880; 84484; 85025; 96374; 99285; G0378; G0480; J1885; Q9967